=== PATIENT | female | born 1965 | race Caucasian/White ===

== ENCOUNTER 2021-07-14 15:15 | Outpatient (CLI) | payer OTHER, SELFPAY ==
--- NOTE | ~2021-07-14 | MM_ITS ---
EXAMINATION: MM screening [facility] BI w magdalena HISTORY: Screening mammogram TECHNIQUE: Craniocaudal and mediolateral oblique 3-D tomosynthesis images were obtained and synthetic 2-D images were generated. CAD analysis was submitted and interpreted. COMPARISON: 04/04/2019, 02/20/2018, 01/12/2017 BREAST PARENCHYMAL COMPOSITION: There are scattered areas of fibroglandular density. FINDINGS: There is no suspicious mass, calcification, or architectural distortion to suggest malignan cy in either breast. There has been no suspicious interval change. IMPRESSION: 1. No mammographic evidence of malignancy. 2. Recommend routine screening mammography in one year. BI-RADS Category 1: Negative Reviewed, dictated and finalized at location A.
== END 2021-07-14 15:16 | disposition home or self-care (01) ==
LOC: ANHIMG 15:18
PROVIDERS: PCP Family Medicine; Visit Provider Family Medicine
DX: Z12.31 Encounter for screening mammogram for malignant neoplasm of breast (principal)
CPT/HCPCS: 77063; 77067

== ENCOUNTER → 2021-07-30 15:31 | Outpatient (CLI) | payer OTHER, SELFPAY ==
--- NOTE | ~2021-07-30 | XR_ITS ---
XR facial bones min 3V DATE: 07/30/2021 16:01 INDICATION: Facial injury TECHNIQUE: david Quiroz, lateral and submental vertical views COMPARISON: None FINDINGS: The paranasal sinuses are normally developed and aerated. The mastoid air cells appear norm ally aerated. The frontozygomatic sutures, orbital rims and floors, zygomatic arches and remainder of the facial katie ned appear intact. No mandibular fracture or dislocation is evident. The nasal bones and anterior maxillary spine appear intact. Normal sella turcica. IMPRESSION: Negative facial bones Reviewed, dictated and finalized at location A. IMPRESSION: Negative facial bones
== END ==
PROVIDERS: PCP Physician Assistant; Visit Provider Physician Assistant
DX: S09.93XA Unspecified injury of face, initial encounter (principal)
CPT/HCPCS: 70150

== ENCOUNTER 2021-10-25 13:35 | Outpatient (CLI) | payer OTHER, SELFPAY ==
--- NOTE | ~2021-10-25 | CT_ITS ---
EXAMINATION: CT facial bones wo con DATE: 10/25/2021 14:04 INDICATION: Right cheek pain with a knot following injury. Right facial numbness. TECHNIQUE: Computed tomography (CT) of the facial bones and maxillofacial region was performed withou t intravenous contrast. Automated exposure control and iterative reconstruction technique were employ ed. Exam dose: 356.07 mGy-cm total exam DLP. COMPARISON: facial bones FINDINGS: Approximately 3 mm depressed anterior wall fracture of the right maxillary sinus. The frontozygomatic sutures and zygomatic arches are intact. Nasal bones and anterior maxillary spine are intact. Normal alignment at the temporal mandibular joints. No mandibular fracture. Middle and inner ear apparatus appear normal. Included mastoid air cells appear normally developed an d aerated. There is a mucous retention cyst in the posterior lower maxillary sinuses bilaterally. IMPRESSION: Depressed fracture of the anterior wall of the right maxillary sinus Reviewed, dictated and finalized at Location A. Reviewed, dictated and finalized at location B. IMPRESSION: Depressed fracture of the anterior wall of the right maxillary sin us
== END 2021-10-25 13:36 | disposition home or self-care (01) ==
PROVIDERS: PCP Family Medicine; Visit Provider Family Medicine
DX: R20.0 Anesthesia of skin (principal); R22.0 Localized swelling, mass and lump, head; S09.93XA Unspecified injury of face, initial encounter; S02.19XA Other fracture of base of skull, initial encounter for closed fracture
CPT/HCPCS: 70486

== ENCOUNTER → 2022-10-28 07:55 | Outpatient (CLI) | payer OTHER, SELFPAY | PROVIDERS: PCP Family Medicine; Visit Provider Nurse Practitioner Family | DX: S99.912A Unspecified injury of left ankle, initial encounter (principal); T14.90XA Injury, unspecified, initial encounter | CPT/HCPCS: 73630 ==

== ENCOUNTER 2022-12-02 06:52 | Outpatient (CLI) | payer OTHER, SELFPAY ==
--- NOTE | ~2022-12-02 | MR_ITS ---
MRI of the left foot CLINICAL HISTORY: Injury TECHNIQUE: Sagittal T1-weighted and STIR images, axial proton-density and proton-density fat-sat imag es, and coronal T1-weighted and proton-density fat-sat images were performed. FINDINGS: There is marrow edema in the visualized anterior cuboid, without distinct fracture line. Re maining bone marrow signals in the midfoot and forefoot are unremarkable. Joint spaces are preserved. No significant joint effusion seen. Flexor and extensor tendons are intact. Intrinsic musculature of the foot is unremarkable. No interme tatarsal bursitis or Mcdowell's neuroma. Visualized plantar fascia is intact. IMPRESSION: Bone contusion of the anterior cuboid. No other significant findings. Reviewed, dictated and finalized at location .
--- NOTE | ~2022-12-02 | MR_ITS ---
MRI of the left ankle Clinical history: Injury Technique: Coronal proton-density and proton-density fat-sat images, axial proton-density and proton- density fat-sat images, and sagittal proton-density and proton-density fat-sat images were acquired. Findings: Syndesmotic ligaments are intact. Anterior and posterior talofibular ligaments, and calcane ofibular ligament are intact. Deltoid ligament is intact. Medial flexor tendons, peroneal tendons, anterior extensor tendons, and Achilles tendon are intact. There is marrow edema extensively involving the anterior aspect of the cuboid, without fracture line. Remaining bone marrow signals are intact. No osteochondral lesion of the talar dome. No joint effusi on evident. Plantar fascia is intact. Normal signal preserved in the sinus Tarsi. Impression: Extensive marrow edema of the anterior cuboid, suggestive of bone contusion. No fracture seen. Reviewed, dictated and finalized at [facility]. Impression: Extensive marrow edema of the anterior cuboid, suggestive of bone contusion. No fracture seen.
== END 2022-12-02 06:53 | disposition home or self-care (01) ==
PROVIDERS: PCP Family Medicine; Visit Provider Family Medicine
DX: S99.912A Unspecified injury of left ankle, initial encounter (principal); M79.89 Other specified soft tissue disorders
CPT/HCPCS: 73718; 73721

== ENCOUNTER 2023-01-30 15:14 | Outpatient (CLI) | payer OTHER, SELFPAY ==
--- NOTE | ~2023-01-30 | MM_ITS ---
EXAMINATION: MM screening [facility] BI w magdalena HISTORY: Screening mammogram TECHNIQUE: Craniocaudal and mediolateral oblique 3-D tomosynthesis images were obtained and synthetic 2-D images were generated. CAD analysis was submitted and interpreted. COMPARISON: 07/14/2021, 04/04/2019, 02/20/2018 BREAST PARENCHYMAL COMPOSITION: There are scattered areas of fibroglandular density. FINDINGS: No suspicious mass, calcification, or architectural distortion are identified in either zenaida ast to suggest malignancy. There has been no suspicious interval change. IMPRESSION: 1. No mammographic evidence of malignancy. 2. Recommend routine screening mammography in one year. BI-RADS Category 1: Negative Reviewed, dictated and finalized at location A.
== END 2023-01-30 15:15 | disposition home or self-care (01) ==
PROVIDERS: PCP Family Medicine; Visit Provider Family Medicine
DX: Z12.31 Encounter for screening mammogram for malignant neoplasm of breast (principal)
CPT/HCPCS: 77063; 77067

== ENCOUNTER 2023-05-04 10:12 | Outpatient (CLI) | payer OTHER, SELFPAY ==
[2023-05-04 18:48] LABS: Hematocrit 40.8 % (37.0-47.0); Mean Corpuscular HGB Conc 31.9 g/dl (32-36); Mean Corpuscular Hemoglobin 29.3 pg (26-34); Mean Corpuscular Volume 92.1 fl (80-100); Mean Platelet Volume 12.4 fl (7.4-10.4); Platelet Count Result 173 k/mm3 (150-375); Red Blood Count 4.43 M/mm3 (4.2-5.4); Red Cell Distribution Width 13.3 % (11.5-14.5); White Blood Count 5.3 K/mm3 (4.5-10.0)
[2023-05-04 20:50] LABS: Alanine Aminotransferase 27 U/L (6-35); Albumin Level 4.2 g/dL (3.5-5.1); Alkaline Phosphatase 54 U/L (38-126); Anion Gap 5 mmol/L (8-16); Aspartate Amino Transferase 39 U/L (14-36); Bilirubin,Total 0.5 mg/dL (0.2-1.3); Blood Urea Nitrogen 13 mg/dL (7-17); Calcium 9.6 mg/dL (8.4-10.2); Carbon Dioxide 32 mmol/L (22-30); Chloride 100 mmol/L (98-107); Cholesterol 236 mg/dL (0-200); Estimated Glomerular Filt Rate > 60; Glucose 75 mg/dL (65-110); HDL Direct 51 mg/dL; Potassium 4.2 mmol/L (3.4-5.0); Sodium 137 mmol/L (137-145); Triglycerides 77 mg/dL (<150)
[2023-05-04 21:07] LABS: LDL Cholesterol Direct 137 mg/dL
[2023-05-04 21:19] LABS: Thyroid Stimulating Hormone 0.847 uIU/mL (0.465-4.680)
== END 2023-05-04 10:13 | disposition home or self-care (01) ==
LOC: ANHGOSHLAB 10:14
PROVIDERS: PCP Family Medicine; Visit Provider Family Medicine
DX: E78.5 Hyperlipidemia, unspecified (principal); Z83.3 Family history of diabetes mellitus
CPT/HCPCS: 36415; 80053; 80061; 84443; 85027

== ENCOUNTER 2024-05-22 15:37 | Outpatient (CLI) | payer OTHER, SELFPAY ==
--- NOTE | ~2024-05-22 | MM_ITS ---
EXAMINATION: MM screening [facility] BI w magdalena HISTORY: Screening TECHNIQUE: Craniocaudal and mediolateral oblique 3-D tomosynthesis images were obtained and synthetic 2-D images were generated. CAD analysis was submitted and interpreted. COMPARISON: Comparison to multiple prior studies sequentially, with oldest reviewed study dated 01/12. BREAST PARENCHYMAL COMPOSITION: Not dense: There are scattered areas of fibroglandular density. FINDINGS: There is no evidence of suspicious mass, calcification, or architectural distortion to sugg est malignancy in either breast. There has been no suspicious interval change. IMPRESSION: 1. No mammographic evidence of malignancy. 2. Recommend routine screening mammography in one year. BI-RADS Category 1: Negative Reviewed, dictated and finalized at location A. 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
--- OUTSIDE RECORDS SUMMARY | 2024-05-24 03:03 | XMS_ITS | Clinical Summary ---
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 Gender Identity Not on file Sexual Orientation Not on file Plan of Treatment Health Maintenance Due Date Last Done Comments Hepatitis C Virus (HCV) Screening 1966 TdaP Immunization 1966 Hepatitis B Immunization (1 of 3 - 19+ 3-dose series) 1985 Pap Smear 1987 Cervical Cancer Screening (CCS) 1996 HPV/Cotest 1996 Colonoscopy 2011 Colorectal Cancer Screening 2011 Cologuard 2016 Immunochemical Fecal Occult Blood 2016 Mammogram 2016 Pneumococcal Immunization (5 0+ years) (1 of 1 - PCV) 2016 Zoster Immunization (1 of 2) 2016 Influenza Immunization (#1) 2023 SARS-COV-2 Immunization ( season) 2023 Respiratory Syncytial Virus (RSV) Immunization (Adult) (1 - 1-dose 75+ series) 2041 Meningococcal Immunization (ACWY) Aged Out No longer eligible based on patient's age to complete this topic Pneumococcal Immunization Combined Aged Out No longer eligible based on patient's age to complete this topic Rotavirus Immunization Aged Out No lo nger eligible based on patient's age to complete this topic
== END 2024-05-22 15:38 | disposition home or self-care (01) ==
LOC: ANHIMG 15:41
PROVIDERS: PCP Family Medicine; Visit Provider Family Medicine
DX: Z12.31 Encounter for screening mammogram for malignant neoplasm of breast (principal)
CPT/HCPCS: 77063; 77067

== ENCOUNTER 2024-06-21 11:22 | Emergency (ER) | payer OTHER, SELFPAY ==
--- NOTE | ~2024-06-21 | CT_ITS ---
EXAMINATION: CT brain wo con DATE: 06/21/2024 12:19 INDICATION: Dizziness and lightheadedness TECHNIQUE: Computed tomography (CT) of the head was performed without intravenous contrast. Sagittal and coronal reconstructions were performed. The mA was adjusted according to patient size. Iterative reconstruction technique was employed. The dose-length product was 605.33 mGy-cm. COMPARISON: None FINDINGS: No acute intracranial hemorrhage, acute infarction or abnormal extra axial fluid collection. Symmetri c prominence of the sulci and subarachnoid spaces overlying the convexities consistent with mild age- appropriate diffuse cerebral volume loss. Ventricles are normal and symmetric. No mass/mass effect. The orbits, paranasal sinuses and mastoid air cells are normal. IMPRESSION: 1. Normal aging brain. No acute intracranial process. Reviewed, dictated and finalized at location A. NT DEVELOPMENT MANAGER
--- OUTSIDE RECORDS SUMMARY | 2024-06-21 11:49 | XMS_ITS | Clinical Summary ---
Author Organization [facility] Virtual Care Address [address] [place] [id number] Phone Care Team Providers Care Student Financial Services Counselor Name Role Phone Natalia Rhoades DO Primary Care Provider [phone]- [phone] Allergies No known active allergies Medications cyclobenzaprine (FLEXERIL) 5 mg tabletIndicatio ns:Acute bilateral low back pain without sciatica Take 1 tablet (5 mg total) by mouth 3 (three) times a day as needed for muscle spasms 30 tablet 06/13/2024 Active predniSONE (DELTASONE) 10 mg tabletIndicatio ns:Acute bilateral low back pain without sciatica Take 4 tablets days 1 & 2, take 3 tablets days 3 & 4, take 2 tablets days 5 & 6, take 1 tablet days 7-10 22 tablet 06/13/2024 Active Active Problems No known active problems Encounters Date Type Department Care Team Description 06/13/2024 2:30 PM 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 WORKER Office Visit [facility] [place] [address] [place] [id number] Kelly Bustos NP Acute bilateral low back pain without sciatica (Primary Dx) from Last 3 Months Social History Tobacco Use Types Packs/Day Years Used Date Smoking Tobacco: Never Assessed Comments Unknown Sex and Gender Information Value Date Recorded Sex Assigned at Not on file Legal Sex Female 4:07 AM SHEARING SHED WORKER Gender Identity Female 06/13/2024 11:33 AM SHEARING SHED WORKER Sexual Orientation Not on file Obstetrics History Last Filed Vital Signs Vital Sign Reading Time Taken Comments Blood Pressure 120/86 06/13/2024 2:33 PM SHEARING SHED WORKER Pulse 76 06/13/2024 2:33 PM SHEARING SHED WORKER Temperature 36.9 C (98.5 F) 06/13/2024 2:33 PM SHEARING SHED WORKER Respiratory Rate 16 06/13/2024 2:33 PM SHEARING SHED WORKER Oxygen Saturation 96% 06/13/2024 2:33 PM SHEARING SHED WORKER Inhaled Oxygen Concentration - - Weight 72.6 kg (160 lb) 06/13/2024 2:33 PM SHEARING SHED WORKER Height 175.3 cm (5' 9 ) 06/13/2024 2:33 PM SHEARING SHED WORKER Body Mass Index 23.63 06/13/2024 2:33 PM SHEARING SHED WORKER Plan of Treatment Health Maintenance Due Date Last Done Comments Breast Cancer Screening-Mammogram 1966 Cervical Cancer Screening 1966 Colon Cancer Screening-Colonoscopy 1966 Depression Screening 1966 Hepatitis C Screening 1966 DTaP/Tdap/Td Vaccine (1 - Tdap) 1977 Hepatitis B Screening 1984 Regular Well Visit/Exam 18-64 1984 Zoster Vaccine (1 of 2) 2016 Covid-19 Vaccine (4 - 2023-2 5 season) 2023 03/28/2021, 07/11/2020, 06/13/2020 Influenza Vaccine (#1) 2023 Pneumococcal vaccine <65 Aged Out No longer eligible based on patient's age to complete this topic Insurance [facility] [employer] Care Teams Student Financial Services Counselor Relationship Specialty Start Date End Date Natalia Rhoades DO [facility] [place] [address] PCP - General Family Medicine 06/13/24
--- OUTSIDE RECORDS SUMMARY | 2024-06-21 11:49 | XMS_ITS | Clinical Summary ---
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
--- OUTSIDE RECORDS SUMMARY | 2024-06-21 11:49 | XMS_ITS | Referral Summary ---
Author Organization [facility] Virtual Care Address [address] [place] [phone] Phone Care Team Providers Care Wharfinger Chief Name Role Phone Natalia Rhoades DO Primary Care Provider [phone]- [phone] Encounters Date Type Department Care Team Description 06/13/2024 2:30 PM SUPERVISOR ELECTRONICS INSPECTION Office Visit [facility] [place] [address] [place] [phone] Kelly Bustos, RODRIGUE Acute bilateral low back pain without sciatica (Primary Dx) from Last 3 Months Allergies No known active allergies Medications cyclobenzaprine [...] Active Active Problems No known active problems Social History Tobacco Use Types Packs/Day Years Used Date Smoking Tobacco: Never Assessed Comments Unknown Sex and Gender Information Value Date Recorded Sex Assigned at Not on file Legal Sex Female 4:07 AM SUPERVISOR ELECTRONICS INSPECTION Gender Identity Female 06/13/2024 11:33 AM SUPERVISOR ELECTRONICS INSPECTION Sexual Orientation Not on file Last Filed Vital Signs Vital Sign Reading Time Taken Comments Blood Pressure 120/86 06/13/2024 2:33 PM SUPERVISOR ELECTRONICS INSPECTION Pulse 76 06/13/2024 2:33 PM SUPERVISOR ELECTRONICS INSPECTION Temperature 36.9 C (98.5 F) 06/13/2024 2:33 PM SUPERVISOR ELECTRONICS INSPECTION Respiratory Rate 16 06/13/2024 2:33 PM SUPERVISOR ELECTRONICS INSPECTION Oxygen Saturation 96% 06/13/2024 2:33 PM SUPERVISOR ELECTRONICS INSPECTION Inhaled Oxygen Concentration - - Weight 72.6 kg (160 lb) 06/13/2024 2:33 PM SUPERVISOR ELECTRONICS INSPECTION Height 175.3 cm (5' 9 ) 06/13/2024 2:33 PM SUPERVISOR ELECTRONICS INSPECTION Body Mass Index 23.63 06/13/2024 2:33 PM SUPERVISOR ELECTRONICS INSPECTION Plan of Treatment Not on file Insurance [facility] [employer] Care Teams Wharfinger Chief Relationship Specialty Start Date End Date Natalia Rhoades DO [address] [place] [address] DR TOVAR [address] [place] [id number] PCP - General Family Medicine 06/13/24
--- NOTE | 2024-06-21 11:55 | ED.DIZZY ---
HPI - Dizziness General Chief Complaint: Dizziness <MITA Hudson Last Filed: 06/21/24 12:16> Stated Complaint: dizziness, blurred vision, N/V x3-4 days <Khushi Armstrong PA-C - Last Filed: 06/21/24 12:16> Time Seen by Provider: 06/21/24 11:56 <MITA Hudson Last Filed: 06/21/24 12:16> Focused HPI: Patient is a 59 y/o female who presents the ED with report of dizziness. Patient reports over the last 4 days, she has been having intermittent dizziness, palpitations, pins and needles sensation in arms and feet, generalized weakness. Describes the dizziness as feeling lightheaded and somewhat spinny, worse with movement and looking to the L. Reported having a headache this morning. Took Excedrin and headache is currently resolved. She then developed nausea and vomiting today, which prompted her presentation. Patient notes she was started on prednisone last for back pain. She is concerned she may be having a reaction. She has never taken this before. Denies rash or itching. Last dose was on Monday. Patient denies chest pain, abdominal pain, shortness of breath, focal weakness. GENERAL: Mildly ill/anxious-appearing, well-nourished, and in no acute distress. HEAD: Normocephalic, atraumatic. CHEST: Clear to auscultation. ?No respiratory distress. Slight tachypnea. HEART: Regular rate and rhythm.? NEURO: ?Alert and oriented x3. No gross focal deficits. No pronator drift. 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 Eyes are PERRL/EOMI, faint fatigable nystagmus when looking to the left which does reproduce dizziness. Dizziness also elicited with sitting forward in the wheelchair. Patient screened in triage and initial orders placed.? ?Additional care and disposition to be based upon?diagnostic testing and treatment. <Khushi Armstrong PA-C - Last Filed: 06/21/24 12:16> Source: patient <MITA Hudson Last Filed: 06/21/24 12:16> Mode of arrival: ambulatory <MITA Hudson Last Filed: 06/21/24 12:16> Limitations: no limitations <Khushi Armstrong PA-C - Last Filed: 06/21/24 12:16> History of Present Illness HPI Narrative: Agree with HPI. Had similar symptoms 3 years ago while on [place] fishing boat that lasted for 30 minutes. Mainly the dizziness with nausea. <Adama Maguire MD - Last Filed: 06/21/24 18:17> Related Data Allergies/Adverse Reactions: Allergies Allergy/AdvReac Type Severity Reaction Status Date / Time No Known Allergies Allergy Unknown Verified 06/21/24 11:24 <Khushi Armstrong PA-C - Last Filed: 06/21/24 12:16> Review of Systems Review of Systems: All systems reviewed & are unremarkable except as noted in HPI and below <Adama Maguire MD - Last Filed: 06/21/24 18:17> Constitutional: Constitutional: Reports no additional constitutional complaints <Adama Maguire MD - Last Filed: 06/21/24 18:17> Cardiovascular: Cardiovascular: Reports no additional cardiovascular complaints <Adama Maguire MD - Last Filed: 06/21/24 18:17> Respiratory: Respiratory: Reports no additional respiratory complaints <Adama Maguire MD - Last Filed: 06/21/24 18:17> Musculoskeletal: Musculoskeletal: Reports no additional musculoskeletal complaints <Adama Maguire MD - Last Filed: 06/21/24 18:17> Neurologic: Reports system reviewed and no additional complaints, except as documented <Adama Maguire MD - Last Filed: 06/21/24 18:17> [facility] Past Medical History Medical History: Medical History COVID-19 Left ankle injury <Khushi Armstrong PA-C - Last Filed: 06/21/24 12:16> Family History Family History: Family History Grandparent Diabetes mellitus Family history of malignant neoplasm of breast Other No family history of cardiovascular disease <MITA Hudson Last Filed: 06/21/24 12:16> Social History Social History: Social History Smoking packs per day: 1 Smoking cigarettes per day: 20.0 Years smoked: 15 Smoking pack-years: 15.00 Smoking status: Former smoker Second hand tobacco smoke exposure: No Smoking end date: 05/01/95 Alcohol intake: current Alcohol use details: Social Substance use: never Substance use type: does not use Lack of Transportation: No Lack of Food: Never True Current Housing: I Have Housing Concerned About Future Housing: No Difficulty Paying Gas/Electric Bills: No Difficulty Paying for Meds: No Currently Unemployed: No Education: Master's Degree or Higher Difficulty w/ Childcare or Family Care: No Living arrangements: with family Occupation/Education: occupation Gender identity (if verbalized by the patient): Female <Khushi Armstrong PA-C - Last Filed: 06/21/24 12:16> Exam Narrative: GENERAL: Well-appearing, well-nourished, and in no acute distress. HEAD: Normocephalic, atraumatic. EYES: PERRL and EOMI. ENT: Mucous membranes moist. TMs normal bilaterally. Ear canals free of cerumen. CHEST: Clear to auscultation. No respiratory distress. HEART: Regular rate and rhythm. Normal peripheral pulses. ABDOMEN: Soft, nontender, nondistended. EXTREMITIES: Normal range of motion. No edema. SKIN: Warm, dry, no rash. NEURO: No upper or lower extremity drift. Normal cpaqbc-tb-dzzo testing and liqr-ss-ptog testing. No dysarthria. No expressive aphasia. No facial droop. Alert and oriented x3. <Adama Maguire MD - Last Filed: 06/21/24 18:17> Course Course Emergency Course: Suspect vertigo. Patient has declined meclizine x2. She did receive IV fluid. She has no symptoms. Appropriate for discharge home. CT negative. Lab work unremarkable. EKG normal. <Adama Maguire MD - Last Filed: 06/21/24 18:17> Vital Signs Vital signs: Vital Signs Temperature 97.3 F L 06/21/24 11:56 Pulse Rate 81 06/21/24 11:56 Respiratory Rate 16 06/21/24 11:56 Blood Pressure 127/85 06/21/24 11:56 Pulse Oximetry 98 06/21/24 11:56 Temperature 97.7 F 06/21/24 15:48 Pulse Rate 86 06/21/24 15:48 Respiratory Rate 16 06/21/24 15:48 Blood Pressure 116/76 06/21/24 15:48 Pulse Oximetry 97 06/21/24 15:48 <Khushi Armstrong PA-C - Last Filed: 06/21/24 12:16> Vital Signs Temperature 97.3 F L 06/21/24 11:56 Pulse Rate 81 06/21/24 11:56 Respiratory Rate 16 06/21/24 11:56 Blood Pressure 127/85 06/21/24 11:56 Pulse Oximetry 98 06/21/24 11:56 Temperature 97.7 F 06/21/24 15:48 Pulse Rate 86 06/21/24 15:48 Respiratory Rate 16 06/21/24 15:48 Blood Pressure 116/76 06/21/24 15:48 Pulse Oximetry 97 06/21/24 15:48 <Adama Maguire MD - Last Filed: 06/21/24 18:17> MDM - Dizziness MDM Narrative Medical decision making narrative: MSE by ARTHUR in triage. <Khushi Armstrong PA-C - Last Filed: 06/21/24 12:16> Lab Data Result diagrams: 06/21/24 15:46 06/21/24 15:46 <Khushi Armstrong PA-C - Last Filed: 06/21/24 12:16> Labs: Lab Results 06/21/24 Range/Units 15:46 WBC 12.1 H (4.5-10.0) K/mm3 RBC 5.22 (4.2-5.4) M/mm3 Hgb 15.4 H (12.0-15.0) g/dL Hct 46.3 (37.0-47.0) % MCV 88.7 (80-100) fl MCH 29.5 (26-34) pg MCHC 33.3 (32-36) g/dl RDW 13.3 (11.5-14.5) % Plt Count 198 (150-375) k/mm3 MPV 12.1 H (7.4-10.4) fl Immature Gran % (Auto) 0.7 H (0-0.5) % Neut % (Auto) 79.7 H (45.5-73.1) % Lymph % (Auto) 12.5 L (18.3-44.2) % Craig % (Auto) 6.1 (2.6-8.5) % Eos % (Auto) 0.6 (0-4.4) % Baso % (Auto) 0.4 (0.2-1.2) % Lymph # (Auto) 1.51 (0.9-3.2) K/mm3 Craig # (Auto) 0.7 H (0.1-0.6) K/mm3 Eos # (Auto) 0.1 (0-0.3) K/mm3 Baso # (Auto) 0.1 (0.0-0.1) K/mm3 Abs Immat Gran (auto) 0.08 H (0.00-0.031) K/mm3 Absolute Neuts (auto) 9.7 H (1.3-6.7) K/mm3 Absolute Nucleated RBC 0.000 (0.0-0.012) K/mm3 Nucleated RBC % 0.0 (0.0-0.2) % PT 12.3 (11.1-14.7) Seconds INR 0.9 APTT 22.2 L (22.3-36.8) Seconds Sodium 139 (137-145) mmol/L Potassium 3.9 (3.4-5.0) mmol/L Chloride 99 (98-107) mmol/L Carbon Dioxide 29 (22-30) mmol/L Anion Gap 11 (4-12) mmol/L BUN 12 (7-17) mg/dL Creatinine 0.67 L (0.7-1.0) mg/dL Estim Creat Clear Calc 82 ml/min Estimated GFR > 60 (59 - ) Glucose 111 H (65-110) mg/dL Calcium 9.5 (8.4-10.2) mg/dL Magnesium 2.5 H (1.6-2.3) mg/dL Total Bilirubin 0.6 (0.2-1.3) mg/dL AST 21 (14-36) U/L ALT 21 (6-35) U/L Alkaline Phosphatase 66 (38-126) U/L Troponin I < 0.012 (0.000-0.034) ng/mL Total Protein 8.0 (6.3-8.2) g/dL Albumin 4.4 (3.5-5.1) g/dL <Khushi Armstrong PA-C - Last Filed: 06/21/24 12:16> Lab Results 06/21/24 Range/Units 15:46 WBC 12.1 H (4.5-10.0) K/mm3 RBC 5.22 (4.2-5.4) M/mm3 Hgb 15.4 H (12.0-15.0) g/dL Hct 46.3 (37.0-47.0) % MCV 88.7 (80-100) fl MCH 29.5 (26-34) pg MCHC 33.3 (32-36) g/dl RDW 13.3 (11.5-14.5) % Plt Count 198 (150-375) k/mm3 MPV 12.1 H (7.4-10.4) fl Immature Gran % (Auto) 0.7 H (0-0.5) % Neut % (Auto) 79.7 H (45.5-73.1) % Lymph % (Auto) 12.5 L (18.3-44.2) % Craig % (Auto) 6.1 (2.6-8.5) % Eos % (Auto) 0.6 (0-4.4) % Baso % (Auto) 0.4 (0.2-1.2) % Lymph # (Auto) 1.51 (0.9-3.2) K/mm3 Craig # (Auto) 0.7 H (0.1-0.6) K/mm3 Eos # (Auto) 0.1 (0-0.3) K/mm3 Baso # (Auto) 0.1 (0.0-0.1) K/mm3 Abs Immat Gran (auto) 0.08 H (0.00-0.031) K/mm3 Absolute Neuts (auto) 9.7 H (1.3-6.7) K/mm3 Absolute Nucleated RBC 0.000 (0.0-0.012) K/mm3 Nucleated RBC % 0.0 (0.0-0.2) % PT 12.3 (11.1-14.7) Seconds INR 0.9 APTT 22.2 L (22.3-36.8) Seconds Sodium 139 (137-145) mmol/L Potassium 3.9 (3.4-5.0) mmol/L Chloride 99 (98-107) mmol/L Carbon Dioxide 29 (22-30) mmol/L Anion Gap 11 (4-12) mmol/L BUN 12 (7-17) mg/dL Creatinine 0.67 L (0.7-1.0) mg/dL Estim Creat Clear Calc 82 ml/min Estimated GFR > 60 (59 - ) Glucose 111 H (65-110) mg/dL Calcium 9.5 (8.4-10.2) mg/dL Magnesium 2.5 H (1.6-2.3) mg/dL Total Bilirubin 0.6 (0.2-1.3) mg/dL AST 21 (14-36) U/L ALT 21 (6-35) U/L Alkaline Phosphatase 66 (38-126) U/L Troponin I < 0.012 (0.000-0.034) ng/mL Total Protein 8.0 (6.3-8.2) g/dL Albumin 4.4 (3.5-5.1) g/dL <Adama Maguire MD - Last Filed: 06/21/24 18:17> Imaging Data Radiologist's impression: ITS Impressions Head CT 06/21/24 12:26 IMPRESSION: 1. Normal aging brain. No acute intracranial process. <Adama Maguire MD - Last Filed: 06/21/24 18:17> ECG Data EKG #1: ECG completion date: 06/21/24 <Adama Maguire MD - Last Filed: 06/21/24 18:17> ECG completion time: 15:53 <Adama Maguire MD - Last Filed: 06/21/24 18:17> EKG Interpretation: normal rate (82), sinus rhythm, no ST changes, normal QRS, normal QT and NL axis <Adama Maguire MD - Last Filed: 06/21/24 18:17> Discharge Plan Discharge Clinical Impression: Vertigo <Khushi Armstrong PA-C - Last Filed: 06/21/24 12:16> Patient Disposition: Home, Self-Care <Khushi Armstrong PA-C - Last Filed: 06/21/24 12:16> Condition: Stable <MITA Hudson Last Filed: 06/21/24 12:16> Instructions: Vertigo (ED) <MITA Hudson Last Filed: 06/21/24 12:16> Additional Instructions: Return the ER if you have worsening dizziness, you cannot keep down food/water/medication, you have focal weakness in arm or leg, or you have additional concerns. <Khushi Armstrong PA-C - Last Filed: 06/21/24 12:16> Patient Language: Kiswahili <Khushi Armstrong PA-C - Last Filed: 06/21/24 12:16> Prescriptions: New meclizine 25 mg tablet 25 mg PO TID PRN (Reason: dizziness) Qty: 14 0RF No Action ergocalciferol (vitamin D2) [Vitamin D2] 1,250 mcg (50,000 unit) capsule 1,250 mcg PO WEEKLY Qty: 12 1RF <MITA Hudson Last Filed: 06/21/24 12:16> Follow-up/Referrals: Natalia Rhoades DO [Primary Care Provider] - 1 Week <MITA Hudson Last Filed: 06/21/24 12:16>
[2024-06-21 11:56] VITALS: BP 127/85; PULSE 81; RESP 16; TEMP 36.3; O2SAT 98
--- NOTE | 2024-06-21 12:00 | ECG_ITS ---
Test Date: 2024-06-21 15:53:33 Measurements Intervals [place] Rate: 82 P: 64 KS: 159 QRS: 22 QRSD: 80 T: 44 QT: 368 QTc: 430 Interpretive Statements SINUS RHYTHM MINIMAL Q WAVES- INFERIOR LEADS BASELINE ARTIFACT- I, II, III, AVR, AVL, AVF BORDERLINE ECG No previous ECG available for comparison Electronically Signed On 06-21-2024 15:56:07 MALT ROASTER by Jimmy Botello D.O.
--- OUTSIDE RECORDS SUMMARY | 2024-06-21 14:50 | XMS_ITS | Clinical Summary ---
Author Organization [facility] Virtual Care Address [address] [place] [phone] Phone Care Team Providers Care Sergeant Of Corrections Name Role Phone Natalia Rhoades DO Primary Care Provider +1- [phone] Allergies No known active allergies Medications cyclobenzaprine [...] Department Care Team Description 06/13/2024 2:30 PM SOCIAL SERVICES TECHNICIAN Office Visit [facility] [place] [address] [place] [id number] Kelly Bustos NP Acute bilateral low back pain without sciatica (Primary Dx) from Last 3 Months Social History Tobacco Use Types Packs/Day Years Used Date Smoking Tobacco: Never Assessed Comments Unknown Sex and Gender Information Value Date Recorded Sex Assigned at Not on file Legal Sex Female 4:07 AM SOCIAL SERVICES TECHNICIAN Gender Identity Female 06/13/2024 11:33 AM SOCIAL SERVICES TECHNICIAN Sexual Orientation Not on file Obstetrics History Last Filed Vital Signs Vital Sign Reading Time Taken Comments Blood Pressure 120/86 06/13/2024 2:33 PM SOCIAL SERVICES TECHNICIAN Pulse 76 06/13/2024 2:33 PM SOCIAL SERVICES TECHNICIAN Temperature 36.9 C (98.5 F) 06/13/2024 2:33 PM SOCIAL SERVICES TECHNICIAN Respiratory Rate 16 06/13/2024 2:33 PM SOCIAL SERVICES TECHNICIAN Oxygen Saturation 96% 06/13/2024 2:33 PM SOCIAL SERVICES TECHNICIAN Inhaled Oxygen Concentration - - Weight 72.6 kg (160 lb) 06/13/2024 2:33 PM SOCIAL SERVICES TECHNICIAN Height 175.3 cm (5' 9 ) 06/13/2024 2:33 PM SOCIAL SERVICES TECHNICIAN Body Mass Index 23.63 06/13/2024 2:33 PM SOCIAL SERVICES TECHNICIAN Plan of Treatment Health Maintenance Due Date [...] patient's age to complete this topic Insurance [facility] [employer] Care Teams Sergeant Of Corrections Relationship Specialty Start Date End Date Natalia Rhoades DO [facility] [address] [place] [address] PCP - General Family Medicine 06/13/24
--- OUTSIDE RECORDS SUMMARY | 2024-06-21 14:50 | XMS_ITS | Clinical Summary ---
Author Organization [facility] Care Team Providers Care Process Inspector Name Role Phone Unavailable Primary Care Provider Unavailabl e Social History Tobacco Use Types Packs/Day Years Used Date Smoking Tobacco: Never Assessed Comments Unknown Sex and Gender Information Value Date Recorded Sex Assigned at Not on file Legal Sex Female 12:52 PM MEDICAL FACILITIES SECTION DIRECTOR Gender Identity Not on file Sexual Orientation [...]
--- OUTSIDE RECORDS SUMMARY | 2024-06-21 14:50 | XMS_ITS | Referral Summary ---
Author Organization [facility] Virtual Care Address [address] [place] [phone] Phone Care Team Providers Care Manufacturing Advisor Name Role Phone Natalia Rhoades DO Primary Care Provider +1- [phone] Encounters Date Type Department Care Team Description 06/13/2024 2:30 PM RECORD CHANGER TESTER Office Visit [facility] [place] [address] [place] [address] Kelly Bustos, RODRIGUE Acute bilateral low back [...] on file Legal Sex Female 4:07 AM RECORD CHANGER TESTER Gender Identity Female 06/13/2024 11:33 AM RECORD CHANGER TESTER Sexual Orientation Not on file Last Filed Vital Signs Vital Sign Reading Time Taken Comments Blood Pressure 120/86 06/13/2024 2:33 PM RECORD CHANGER TESTER Pulse 76 06/13/2024 2:33 PM RECORD CHANGER TESTER Temperature 36.9 C (98.5 F) 06/13/2024 2:33 PM RECORD CHANGER TESTER Respiratory Rate 16 06/13/2024 2:33 PM RECORD CHANGER TESTER Oxygen Saturation 96% 06/13/2024 2:33 PM RECORD CHANGER TESTER Inhaled Oxygen Concentration - - Weight 72.6 kg (160 lb) 06/13/2024 2:33 PM RECORD CHANGER TESTER Height 175.3 cm (5' 9 ) 06/13/2024 2:33 PM RECORD CHANGER TESTER Body Mass Index 23.63 06/13/2024 2:33 PM RECORD CHANGER TESTER Plan of Treatment Not on file Insurance [facility] [employer] Care Teams Manufacturing Advisor Relationship Specialty Start Date End Date Natalia Rhoades DO [address] [place] [address] [address] [place] [id number] PCP - General Family Medicine 06/13/24
[2024-06-21 15:48] VITALS: BP 116/76; PULSE 86; RESP 16; TEMP 36.5; O2SAT 97
[2024-06-21 15:52] LABS: Basophils Absolute Auto 0.1 K/mm3 (0.0-0.1); Basophils Percent Auto 0.4 % (0.2-1.2); Eosinophils Absolute Auto 0.1 K/mm3 (0-0.3); Eosinophils Percent Auto 0.6 % (0-4.4); Hematocrit 46.3 % (37.0-47.0); Hemoglobin 15.4 g/dL (12.0-15.0); Immature Granulocyte Absolute 0.08 K/mm3 (0.00-0.031); Immature Granulocyte Percent A 0.7 % (0-0.5); Lymphocytes Absolute Auto 1.51 K/mm3 (0.9-3.2); Lymphocytes Percent Auto 12.5 % (18.3-44.2); Mean Corpuscular HGB Conc 33.3 g/dl (32-36); Mean Corpuscular Hemoglobin 29.5 pg (26-34); Mean Corpuscular Volume 88.7 fl (80-100); Mean Platelet Volume 12.1 fl (7.4-10.4); Monocytes Absolute Auto 0.7 K/mm3 (0.1-0.6); Monocytes Percent Auto 6.1 % (2.6-8.5); Neutrophils Absolute Auto 9.7 K/mm3 (1.3-6.7); Neutrophils Percent Auto 79.7 % (45.5-73.1); Platelet Count Result 198 k/mm3 (150-375); Red Blood Count 5.22 M/mm3 (4.2-5.4); Red Cell Distribution Width 13.3 % (11.5-14.5); White Blood Count 12.1 K/mm3 (4.5-10.0)
[2024-06-21 16:04] LABS: INR 0.9; Partial Thromboplastin Time 22.2 Seconds (22.3-36.8); Prothrombin Time 12.3 Seconds (11.1-14.7)
[2024-06-21 16:20] LABS: Alanine Aminotransferase 21 U/L (6-35); Albumin Level 4.4 g/dL (3.5-5.1); Alkaline Phosphatase 66 U/L (38-126); Anion Gap 11 mmol/L (4-12); Aspartate Amino Transferase 21 U/L (14-36); Bilirubin,Total 0.6 mg/dL (0.2-1.3); Blood Urea Nitrogen 12 mg/dL (7-17); Calcium 9.5 mg/dL (8.4-10.2); Carbon Dioxide 29 mmol/L (22-30); Chloride 99 mmol/L (98-107); Estimated CRCL calculation 82 ml/min; Estimated Glomerular Filt Rate > 60; Glucose 111 mg/dL (65-110); Magnesium 2.5 mg/dL (1.6-2.3); Potassium 3.9 mmol/L (3.4-5.0); Sodium 139 mmol/L (137-145)
[2024-06-21 16:30] LABS: Troponin I < 0.012 ng/mL (0.000-0.034)
[2024-06-21] MEDS: SODIUM CHLORIDE 0.9% IV 1,000 ML 999 ML IV CONT (17:00)
== END 2024-06-21 19:06 | disposition home or self-care (01) ==
PROVIDERS: Physician Assistant; Emergency Provider Emergency Medicine; PCP Family Medicine
DX: R42 Dizziness and giddiness (principal); Z86.16 Personal history of COVID-19; Z87.891 Personal history of nicotine dependence; R94.31 Abnormal electrocardiogram [ECG] [EKG]
CPT/HCPCS: 36415; 70450; 80053; 83735; 84484; 85025; 85610; 85730; 93005; 96360; 99284; J7030

== ENCOUNTER 2024-08-27 14:23 | Outpatient (CLI) | payer OTHER, SELFPAY ==
--- NOTE | ~2024-08-27 | XR_ITS ---
EXAMINATION: XR chest 2V Exam Date/Time: 08/27/2024 14:26 CDT HISTORY: persistent cough, head congestion x 2 mos, non smoker Comparison: 07/07/2009. RESULT: Lines, tubes, and devices: None. Lungs and pleura: Clear. Cardiomediastinal silhouette: Stable. Other: No acute osseous or upper abdominal finding. IMPRESSION: No acute cardiopulmonary process. Reviewed, dictated and finalized at location K.
== END 2024-08-27 14:24 | disposition home or self-care (01) ==
LOC: GOSHIMG 14:24
PROVIDERS: PCP Family Medicine; Visit Provider Family Medicine
DX: R05.9 Cough, unspecified (principal)
CPT/HCPCS: 71046

== ENCOUNTER 2024-12-25 08:01 | Outpatient (CLI) | payer OTHER, SELFPAY ==
--- OUTSIDE RECORDS SUMMARY | 2024-12-25 08:03 | XMS_ITS | Clinical Summary ---
Author Organization [facility] Virtual Care Address [address] [place] [phone] Phone Care Team Providers Care Commercial Development Manager Name Role Phone Natalia Rhoades DO Primary Care Provider +1- [phone] Allergies No known active allergies Medications cyclobenzaprine [...] on file Legal Sex Female 4:07 AM ARCHITECT MANAGER Gender Identity Female 06/13/2024 11:33 AM ARCHITECT MANAGER Sexual Orientation Not on file Obstetrics History Last Filed Vital Signs Vital Sign Reading Time Taken Comments Blood Pressure 120/76 07/20/2024 8:19 AM CDT Pulse 94 07/20/2024 8:19 AM CDT Temperature 36.7 C (98.1 F) 07/20/2024 8:19 AM CDT Respiratory Rate 17 07/20/2024 8:19 AM CDT Oxygen Saturation 98% 07/20/2024 8:19 AM CDT Inhaled Oxygen Concentration - - Weight 72.6 kg (160 lb) 07/20/2024 8:19 AM CDT Height 175.3 cm (5' 9) 07/20/2024 8:19 AM CDT Body Mass Index 23.63 07/20/2024 8:19 AM CDT Plan of Treatment Health Maintenance Due Date [...] 2023 03/28/2021, 07/11/2020, 06/13/2020 Influenza Vaccine (#1) 2024 Pneumococcal vaccine <65 Aged Out No longer eligible based on patient's age to complete this topic Insurance [facility] [employer] Care Teams Commercial Development Manager Relationship Specialty Start Date End Date Natalia Rhoades DO [address] [facility] [address] [place] [id number] PCP - General Family Medicine 06/13/24
--- OUTSIDE RECORDS SUMMARY | 2024-12-25 08:03 | XMS_ITS | Clinical Summary ---
Author Organization [facility] Care Team Providers Care Mattress Specialist Name Role Phone Unavailable Primary Care Provider Unavailabl e Social History Tobacco Use Types Packs/Day Years Used Date Smoking Tobacco: Never Assessed Comments Unknown Sex and Gender Information Value Date Recorded Sex Assigned at Not on file Legal Sex Female 12:52 PM DERRICK WORKER WELL SERVICE Gender Identity Not on file Sexual Orientation Not on file Plan of Treatment Health Maintenance Due Date Last Done Comments Hepatitis C Virus (HCV) Screening 1966 TdaP Immunization 1966 Hepatitis B Immunization (1 of 3 - 19+ 3-dose series) 1985 Pap Smear 1987 Cervical Cancer Screening (CCS) 1996 HPV/Cotest 1996 Cologuard 2011 Colonoscopy 2011 Colorectal Cancer Screening 2011 Immunochemical Fecal Occult Blood 2011 Pneumococcal Immunization (5 0+ years) (1 of 1 - PCV) 2016 Zoster Immunization (1 of 2) 2016 SARS-COV-2 Immunization ( - 2023- season) 2023 Influenza Immunization (#1) 2024 Respiratory Syncytial Virus (RSV) Immunization (Adult) (1 - 1-dose 75+ series) 2041 Human Papillomavirus (HPV) Immunization Aged Out No longer eligible b ased on patient's age to complete this topic Meningococcal Immunization (ACWY) Aged Out No longer eligible based on patient's age to complete this topic Rotavirus Immunization Aged Out No lo nger eligible based on patient's age to complete this topic
== END 2024-12-25 08:02 | disposition home or self-care (01) ==
LOC: ANHBWCAUD 08:01
PROVIDERS: PCP Family Medicine; Visit Provider Otolaryngology
DX: H69.93 Unspecified Eustachian tube disorder, bilateral (principal); H91.93 Unspecified hearing loss, bilateral
CPT/HCPCS: 92557; 92567

== ENCOUNTER 2025-02-25 08:43 | Emergency (ER) | payer OTHER, SELFPAY ==
--- NOTE | ~2025-02-25 | XR_ITS ---
EXAMINATION: XR hand LT min 3V, 02/25/2025 9:15 CDT HISTORY: injury, pain, FELL TODAY, PAIN IN 4TH AND 5TH FINGERS COMPARISON: No comparisons available. Findings: Angulated slightly displaced fractures of the proximal aspects proximal phalanges fourth and fifth digits. There is intra-articular extension of the fracture of the fifth proximal phalanx. No significant degenerative changes. Soft tissues unremarkable. Impression: Fractures detailed above Reviewed, dictated and finalized at location P. Impression: Fractures detailed above
[2025-02-25 08:45] VITALS: BP 117/94; PULSE 99; RESP 16; TEMP 36.6; O2SAT 100
--- OUTSIDE RECORDS SUMMARY | 2025-02-25 09:07 | XMS_ITS | Clinical Summary ---
Author Organization [facility] Virtual Care Address [address] [place] [phone] Phone Care Team Providers Care Director Of Restaurants Name Role Phone Natalia Rhoades DO Primary Care Provider +1- [phone] Allergies No known active allergies Medications cyclobenzaprine [...] on file Legal Sex Female 4:07 AM WIG COMBER Gender Identity Female 06/13/2024 11:33 AM WIG COMBER Sexual Orientation Not on file Obstetrics History [...] of 2) 2016 Covid-19 Vaccine (4 - 2024-2 6 season) 2024 03/28/2021, 07/11/2020, 06/13/2020 Influenza Vaccine (#1) 2024 Pneumococcal vaccine <65 Aged Out No longer eligible based on patient's age to complete this topic Insurance [facility] [employer] Care Teams Director Of Restaurants Relationship Specialty Start Date End Date Natalia Rhoades DO PCP - General Family Medicine 06/13/24
--- OUTSIDE RECORDS SUMMARY | 2025-02-25 09:07 | XMS_ITS | Clinical Summary ---
Author Organization [facility] Care Team Providers Care Home Care Assistant Name Role Phone Unavailable Primary Care Provider Unavailabl e Social History Tobacco Use Types Packs/Day Years Used Date Smoking Tobacco: Never Assessed Comments Unknown Sex and Gender Information Value Date Recorded Sex Assigned at Not on file Legal Sex Female 12:52 PM SENIOR ANALYTICAL CHEMIST Gender Identity Not on file Sexual Orientation [...] (1 of 2) 2016 Influenza Immunization (#1) 2024 SARS-COV-2 Immunization ( season) 2024 Respiratory Syncytial Virus (RSV) Immunization (Adult) [...]
--- NOTE | 2025-02-25 09:14 | ED_ITS ---
HPI - General Adult General Chief complaint: Extremity Injury, Upper Stated complaint: fall, left hand injury Time Seen by Provider: 02/25/25 09:00 History of Present Illness HPI narrative: 59-year-old female present to the emergency department for evaluation after having a ground level fall injuring her left hand. Patient did injure her 5th finger and did have swelling of the right middle finger. Patient did have 3 rings that were causing increased pain. Related Data Allergies Allergy/AdvReac Type Severity Reaction Status Date / Time No Known Allergies Allergy Unknown Verified 01/15/25 15:08 Review of Systems Review of Systems: All systems reviewed & are unremarkable except as noted in HPI and below PMFSH Past Medical History Medical History Left ankle injury COVID-19 Family History Family History Grandparent Diabetes mellitus Family history of malignant neoplasm of breast Other No family history of cardiovascular disease Social History Social History Smoking packs per day: 1 Smoking cigarettes per day: 20.0 Years smoked: 15 Smoking pack-years: 15.00 Smoking status: Former smoker Second hand tobacco smoke exposure: No Smoking end date: 05/01/95 Alcohol intake: current Alcohol use details: Social Substance use: never Substance use type: does not use Lack of Transportation: No Lack of Food: Never True Current Housing: I Have Housing Concerned About Future Housing: No Difficulty Paying Gas/Electric Bills: No Difficulty Paying for Meds: No Currently Unemployed: No Education: Master's Degree or Higher Difficulty w/ Childcare or Family Care: No Living arrangements: with family Occupation/Education: occupation Gender identity (if verbalized by the patient): Female Exam Narrative: APPEARANCE: Uncomfortable appearing HEAD: normocephalic, atraumatic. EYES: PERRLA/EOMI, conjunctivae clear. NOSE: Normal no drainage EARS:TMS clear with good light reflex. THROAT: Pharynx clear, no exudate. NECK: Supple. No adenopathy, no masses. RESPIRATORY: Airway patent, respirations nonlabored. Clear to auscultation bilaterally, no rales, rhonchi, wheezing. CARDIOVASCULAR: Regular rate and rhythm without murmurs rubs or gallops. ABDOMINAL: Soft, nontender, nondistended, normal bowel sounds MUSCULOSKELETAL: Tenderness and ecchymosis to left 5th finger, swelling swelling to left 4th finger NEURO: Alert. Cranial nerves II through XII intact. Good gait. Good coordination SKIN: Warm, dry. Normal Color Course Vital Signs Vital signs: Vital Signs Temperature 98 F 02/25/25 08:45 Pulse Rate 99 02/25/25 08:45 Respiratory Rate 16 02/25/25 08:45 Blood Pressure 117/94 H 02/25/25 08:45 Pulse Oximetry 100 02/25/25 08:45 Oxygen Delivery Room Air 02/25/25 08:45 Temperature 98 F 02/25/25 08:45 Pulse Rate 99 02/25/25 08:45 Respiratory Rate 16 02/25/25 08:45 Blood Pressure 117/94 H 02/25/25 08:45 Pulse Oximetry 100 02/25/25 08:45 Oxygen Delivery Room Air 02/25/25 08:45 Procedures Foreign Body Removal Foreign Body #1: Foreign Body Removal Date: 02/25/25 Foreign Body Removal Time: 09:15 Time Out Performed: yes Site: left Description of foreign body: other (3 rings on left ring finger) Sedation/Analgesia: none Technique: other (Raptor scissors/ ring cutter) Confirmed by:: direct visualization Complications: none Post-procedure exam: awake, alert Neurovascular: normal distal pulse and normal capillary fill Medical Decision Making MDM Narrative Medical decision making narrative: 59-year-old female present to the emergency department for evaluation after having a fall injuring her left hand. Patient did have 3 rings at need to be removed from her left ring finger. X-ray was concerning for fractures the proximal 4th and 5th fingers. Patient was placed in a splint provided outpatient follow-up with Plastic surgery. Patient was updated the results of the workup. All questions concerns were addressed patient was well-appearing comfortable at time of discharge. Differential Diagnosis Differential Diagnosis: finger strain, finger fracture Vital Signs Vital Signs: Vital Signs Temperature 98 F 02/25/25 08:45 Pulse Rate 99 02/25/25 08:45 Respiratory Rate 16 02/25/25 08:45 Blood Pressure 117/94 H 02/25/25 08:45 Pulse Oximetry 100 02/25/25 08:45 Oxygen Delivery Room Air 02/25/25 08:45 Temperature 98 F 02/25/25 08:45 Pulse Rate 99 02/25/25 08:45 Respiratory Rate 16 02/25/25 08:45 Blood Pressure 117/94 H 02/25/25 08:45 Pulse Oximetry 100 02/25/25 08:45 Oxygen Delivery Room Air 02/25/25 08:45 Imaging Data Radiologist's impression: Impressions Hand X-Ray 02/25/25 09:25 Impression: Fractures detailed above Discharge Plan Discharge Clinical Impression: Fracture, finger, multiple sites Patient Disposition: Home Condition: Stable Instructions: Antibiotic Form, Hand Fracture (ED), Splint Care (ED) Additional Instructions: Ibuprofen for pain control. [place] as needed for additional pain control. Splint care as directed. Have close follow-up with Hand surgery. If you have any worsening symptoms then please call or return to the emergency department. Patient Language: Bulgarian Prescriptions: New hydrocodone-acetaminophen 5-325 mg tablet 1 tablet PO Q12H PRN (Reason: pain) Qty: 14 0RF No Action mupirocin [Centany] 2 % ointment 1 applic topical BID Qty: 22 3RF Rx Instructions: intranasal azelastine 137 mcg (0.1 %) spray,non-aerosol 1 - 2 spray intranasal Q12H Qty: 30 0RF Rx Instructions: administer into each nostril. Aim back/up/out Follow-up/Referrals: Teresita Trejo MD [Physician, Plastic Surgery] Natalia Rhoades DO [Primary Care Provider, Family Practice]
[2025-02-25] MEDS: HYDROcodone/acetaminophen (*CRX) 5-325 MG TABLET 1 TAB PO (09:45)
--- OUTSIDE RECORDS SUMMARY | 2025-02-25 10:16 | XMS_ITS | Clinical Summary ---
Author Organization [facility] Care Team Providers Care Media Marketing Manager Name Role Phone Unavailable Primary Care Provider Unavailabl e Social History Tobacco Use Types Packs/Day Years Used Date Smoking Tobacco: Never Assessed Comments Unknown Sex and Gender Information Value Date Recorded Sex Assigned at Not on file Legal Sex Female 12:[address]IA[address] Gender Identity Not on file Sexual Orientation [...]
--- OUTSIDE RECORDS SUMMARY | 2025-02-25 10:16 | XMS_ITS | Clinical Summary ---
Author Organization [facility] Virtual Care Address [address] [place] [id number] Phone Care Team Providers Care Survey Supervisor Name Role Phone Natalia Rhoades DO Primary Care Provider [phone] Allergies No known active allergies Medications cyclobenzaprine [...] on file Legal Sex Female 4:07 AM GREASE REFINING SUPERVISOR Gender Identity Female 06/13/2024 11:33 AM GREASE REFINING SUPERVISOR Sexual Orientation Not on file Obstetrics History [...] patient's age to complete this topic Insurance [facility] [employer] Care Teams Survey Supervisor Relationship Specialty Start Date End Date Natalia Rhoades DO PCP - General Family Medicine 06/13/24
== END 2025-02-25 10:23 | disposition home or self-care (01) ==
PROVIDERS: Emergency Provider Emergency Medicine; PCP Family Medicine
DX: S62.615A Displaced fracture of proximal phalanx of left ring finger, initial encounter for closed fracture (principal); S62.617A Displaced fracture of proximal phalanx of left little finger, initial encounter for closed fracture; Z86.16 Personal history of COVID-19; Z87.891 Personal history of nicotine dependence; W18.30XA Fall on same level, unspecified, initial encounter
CPT/HCPCS: 29130; 73130; 99284; A9270